=== PATIENT | male | born 1970 | race Caucasian/White ===

== ENCOUNTER 2016-11-24 14:09 | Emergency (ER) | payer SELFPAY ==
--- NOTE | ~2016-11-24 | CT71 ---
[facility] A Service of [facility] RADIOLOGY TEXT RESULTS PATIENT: MUNIRA NESS LOCATION: [facility] : [birth year] UNIT #: [id number] AGE: [address]: Godfrey Robbins MD SEX: M ORDER DR: [id number] [facility] [address] [place], [place] [address] [id number] E MR#: [id number] [facility] #: [id number] NAME: MUNIRA NESS : 1970 SEX: M STUDY DATE/TIME: 11/24/2016 16:03 UNIT: [facility] ROOM: STUDY DESCRIPTION: CT Head Wo Contrast Attending Physician: Shanon Garcia M.D. Ordering Physician: Shanon Garcia M.D. 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 Drink this a.m., bruising around nose left eye 1/5 vodka daily hypertension, pancreas, gallbladder disease fluid around heart. EtOH withdrawal. TECHNIQUE CT head performed skull base through vertex without intravenous contrast. This CT exam was performed with one or more of the following radiation dose reduction techniques: automatic exposure control, adjustment of mA and/or kV according to patient size, and iterative reconstruction. COMPARISON STUDIES Comparison 12/24/2006 FINDINGS Brainstem unremarkable. Cerebellum and cerebral hemispheres show normal clinton matter-white matter differentiation. No hemorrhage. No evidence of acute cortical ischemia. No hemorrhage. There is a small hyperdense focus in white matter of the right parietal vertex. Present in 2006. Slightly less conspicuous today. Probably a small parenchymal calcification. No evidence of acute cortical ischemia. The midline structures are nondisplaced. There are mild periventricular and deep white matter tract hypodensities favored to represent sequelae of chronic microvascular ischemia. Ventricles, cisterns and sulci show generalized enlargement consistent with generalized atrophy. More pronounced than in 2006 and disproportionate to the patient's stated age. Disproportionately pronounced in the posterior fossa as well. No intra or extraaxial mass effect or abnormal intracranial fluid collection. There are some cavernous carotid arterial calcifications. The intraorbital soft tissues [facility] A Service of [facility] RADIOLOGY TEXT RESULTS PATIENT: MUNIRA NESS LOCATION: [facility] [place] #: [id number] : [birth year] UNIT #: [id number] AGE: [address]: Godfrey Robbins MD SEX: M ORDER DR: are unremarkable. There appears to be periorbital and nasal soft tissue swelling bilaterally. Question nondisplaced bilateral nasal bone fractures. Correlate with exam and mechanism of injury. No subcutaneous air or radiodense foreign body. No soft tissue defect is seen. IMPRESSION 1. No acute abnormality is seen in the brain. If the patient has ongoing neurologic symptoms, consider follow up imaging preferably with MRI if the patient is a candidate. 2. There is a tiny focus of white matter hyperdensity in the right parietal lobe near the vertex. This was present in 2007 though it is less conspicuous today. It most likely represents a small parenchymal calcification. 3. Mild periventricular and deep white matter tract probable sequelae of chronic microvascular ischemia. 4. Mild generalized atrophy disproportionate to the patient's stated age, more pronounced in the posterior fossa, and more pronounced overall than in 2007. 5. Periorbital soft tissue swelling bilaterally and soft tissue swelling in the superficial nasal soft tissues. Correlate with exam. No soft tissue defect or subcutaneous air. Question nondisplaced nasal bone fractures bilaterally. Please see CT facial bones for better assessment. Dictated by... Parveen Rogers M.D. THIS IS AN ELECTRONICALLY VERIFIED REPORT Parveen Rogers M.D. at 11/24/2016 10:57 PM Jigar TD: 11/24/2016 18:16 JOB #: [id number] MEDICAL IMAGING REPORT COPY
--- NOTE | ~2016-11-24 | CT101 ---
[facility] A Service [facility] RADIOLOGY TEXT RESULTS PATIENT: MUNIRA NESS LOCATION: [facility] : 68 UNIT #: [id number] AGE: [address]: Godfrey Robbins MD SEX: M ORDER DR: [id number] [place] [id number] [facility] [place], [place] [address] [id number] E MR#: [id number] Acc #: [id number] NAME: MUNIRA NESS : 1970 SEX: M STUDY DATE/TIME: 11/24/2016 16:03 UNIT: [facility] ROOM: STUDY DESCRIPTION: CT Maxillofacial Area Wo Cont Attending Physician: Shanon Garcia M.D. Ordering Physician: Shanon Garcia M.D. Primary Care Physician: No Primary Care Physician MEDICAL IMAGING REPORT This report is preliminary unless electronic signature is present EXAM CT face. DATE OF EXAM 11/24/2016 INDICATIONS Patient intoxicated last night. Patient subsequently has bruising around the nose and left eye today. TECHNIQUE Axial images were obtained through the face without contrast. Multiplanar reformats were obtained. NOTE: This CT exam was performed with one or more of the following radiation dose reduction techniques: automatic exposure control, adjustment of mA and/or kV according to patient size, and iterative reconstruction. COMPARISON No comparison. FINDINGS No acute facial bone fractures are identified. Paranasal sinuses are clear. Minimal nasal septal deviation to the right is present. Temporomandibular joints demonstrate normal alignment. The globes are normal. There is some mild soft tissue swelling in the left infraorbital region. IMPRESSION No acute facial bone fractures. There is some mild left infraorbital soft tissue swelling. Dictated by... [facility] A Service [facility] RADIOLOGY TEXT RESULTS PATIENT: MUNIRA NESS LOCATION: [facility] : [birth year] UNIT #: [id number] AGE: [address]: Godfrey Robbins MD SEX: M ORDER DR: Willian L. Carole, Jr., M.D. THIS IS AN ELECTRONICALLY VERIFIED REPORT Willian Lam Jr., M.D. at 11/26/2016 6:02 AM LOWELL/radha TD: 11/24/2016 18:12 JOB #: [id number] MEDICAL IMAGING REPORT COPY
[~2016-11-24 14:09] MED LIST: COMBIVENT MININEB INH; DAILY VALUE1 EACH PO; FOLIC ACID; FOLIC ACID PO; FOLIC ACID1 MG PO; LIBRIUM25 MG PO; LISINOPRIL PO; LOPRESSOR PO; MULTI-VITAMIN1 TAB PO; NICOTINE TRANSD21 MG TD; NO MEDICATIONS; PEPCID PO; PROTONIX PO; THIAMINE HCL100 MG; THIAMINE HCL100 MG PO
[2016-11-24 14:37] LABS: BASOPHIL% 1.3 % (0-2.5); EOSINOPHIL% 0.3 % (0.0-7.0); HEMOGLOBIN 13.6 gm/dL (13.0-16.0); LYMPHOCYTE% 27.6 % (17.0-45.0); MEAN CELL VOLUME 117.6 FL (83-96); MEAN CORPUSCULAR HEMOGLOBIN 39.9 PG (28-34); MEAN CORPUSCULAR HGB CONC 33.9 g/dL (30-36); MEAN PLATELET VOLUME 9.7 FL (6.5-11.5); MONOCYTE# 0.3 X10e3 (0-1.0); MONOCYTE% 8.3 % (3.0-12.0); NEUTROPHIL# 2.3 X10e3 (1.5-7.1); NEUTROPHIL% 62.5 % (40-75); PLATELET COUNT 59 X10e3 (140-420); RED CELL DISTRIBUTION WIDTH 14.8 % (11.0-15.5); WHITE BLOOD COUNT 3.6 X10e3 (4.0-10.5)
[2016-11-24 14:38] LABS: DIFF IND YES
[2016-11-24 14:57] LABS: PLATELET ESTIMATE DECREASED (NORMAL)
[2016-11-24 14:59] LABS: URINE SOURCE CLEAN CATCH
[2016-11-24 15:01] LABS: ALBUMIN SERUM 4.4 g/dL (3.5-5.0); ALKALINE PHOSPHATASE 143 U/L (32-92); ALT (SGPT) 59 U/L (10-40); AST (SGOT) 295 U/L (10-42); BILIRUBIN, DIRECT 0.3 mg/dL (0.0-0.2); BILIRUBIN,INDIRECT 0.8 mg/dL (0.0-0.9); BILIRUBIN,TOTAL 1.1 mg/dL (0.2-2.0); BLOOD UREA NITROGEN 6 mg/dL (9-23); CALCIUM SERUM 8.8 mg/dL (8.4-10.2); CARBON DIOXIDE 24 mmol/L (22-31); CHLORIDE 93 mmol/L (100-111); CREATININE SERUM 0.6 mg/dL (0.6-1.4); GLOM FILT RATE Estimated ABOVE60 mL/min (>60); GLUCOSE FASTING 68 mg/dL (70-110); POTASSIUM 3.1 mmol/L (3.5-5.1); PROTEIN TOTAL SERUM 7.3 g/dL (6.0-8.3); SODIUM 136 mmol/L (135-145)
[2016-11-24 15:05] LABS: ALCOHOL BLOOD 456 mg/dL (0)
[2016-11-24 15:05] LABS: URINE APPEARANCE CLEAR; URINE BILIRUBIN NEG (NEG); URINE BLOOD TRACE (NEG); URINE COLOR YELLOW; URINE GLUCOSE NEG (NEG); URINE KETONE 1+ (NEG); URINE LEUKOCYTE ESTERASE NEG (NEG); URINE NITRATE NEG (NEG); URINE PROTEIN 1+ (NEG); URINE SPECIFIC GRAVITY 1.008 (1.003-1.035)
[2016-11-24 15:07] LABS: CULTURE INDICATED? YES; U HYALINE CASTS AUWI 0-2 /[LPF]; URBCS1 AUWI 0-2 /[HPF] (0-2); URINE BACTERIA AUWI 4+ (NEGATIVE); URINE SQUAMOUS EPITHELIAL CELL NONE SEEN /[HPF]; UWBCS1 AUWI 0-2 (0-5)
[2016-11-24 15:16] LABS: AMPHETAMINE NEG (NEG); BARBITURATES NEG (NEG); BENZODIAZEPINES NEG (NEG); COCAINE NEG (NEG); MARIJUANA NEG (NEG); OPIATES NEG (NEG); TRICYCLIC ANTIDEPRESSANTS NEG (NEG); U METHADONE NEG (NEG)
== END 2016-11-25 03:20 | disposition home or self-care (01) ==
LOC: CED 14:09
PROVIDERS: Student in an Organized Health Care Education/Training Program
DX: S00.83XA Contusion of other part of head, initial encounter (principal); F10.129 Alcohol abuse with intoxication, unspecified; F17.200 Nicotine dependence, unspecified, uncomplicated; X58.XXXA Exposure to other specified factors, initial encounter; Y92.9 Unspecified place or not applicable
CPT/HCPCS: 36415; 70450; 70486; 80048; 80076; 80307; 81003; 82947; 85025; 87086; 87088; 87186; 96360; 96372; 99284; G0480; J2560; J3411; J3475